=== PATIENT | male | born 1975 | race Caucasian/White ===

== ENCOUNTER 2024-11-02 07:15 | Emergency (ER) | payer OTHER, SELFPAY ==
[2024-11-02 07:20] VITALS: BP 167/107
[2024-11-02 10:00] VITALS: BP 178/92
[2024-11-02 10:13] VITALS: BMI 25.6
--- NOTE | 2024-11-02 10:28 | ED.GENMED ---
History of Present Illness
General
Chief Complaint: DVT/Possible Blood Clot
Source: patient
Time Seen by Provider: 11/02/24 08:32
History of Present Illness
History of Present Illness:
49-year-old male with past medical history of hypertension presenting to the ER for evaluation of left lower extremity discomfort specifically within the gastric anemias region over the last 1 to 2 days, mother with history of DVT prompting
patient's concern to come to the ER. He denies any trauma, focal weakness or numbness, chest pain or shortness of breath. No history of similar. Denies any cigarettes or tobacco use, no long plane rides or recent travel. No fevers or infectious
symptoms. No other concerns presently.
Past History
Past History
ED Past Medical History: HTN
ED Past Surgical History: None
Social History
Tobacco: Non-smoker
Alcohol: Occasional
Drug: None
Personal: Single
Employment: Employed
Review of Systems
Review of Systems
All Other Systems: ROS reviewed and negative except as documented in HPI and ROS
Phy Exam
Physical Exam
Physical Exam:
GENERAL: Alert , in no apparent distress
EYE: conjunctiva clear
Head: Normocephalic atraumatic
NECK: Supple,
ENT: mmm.
LUNGS: no acute respiratory distress
NEUROLOGICAL: Alert and oriented
SKIN: Warm and dry, skin intact.
MUSCULOSKELETAL: Left lower extremity: No obvious deformity, erythema, edema, ecchymosis, abrasions or lacerations. There are multiple varicose veins that are somewhat firm to palpation and tender but no overlying erythema. Easily palpable pedal
and tibial pulse cap refill less than 2 seconds and sensation is grossly intact to light touch. Patient allows for full range of motion without pain.
PSYCH: Normal and appropriate interaction.
Scores
Heart Failure Risk
Heart Failure Risk Score: Not Applicable
Heart Score for Chest Pain Patients
STEMI patient?: Not applicable
Withdrawal Assessment of Alcohol
Withdrawal Assessment Completed?: Not applicable
Course
Orders/Labs/Results
Orders:
Orders
11/02/24 08:34
US Periph Venous LOWER Ext LT Urgent
Comment:
Reason For Exam: pain, family hx DVT
Vital Signs
Initial and Last Documented VS:
Initial Vital Signs
Temp Pulse Resp BP Pulse Ox
97.6 F 85 16 167/107 97
11/02/24 07:20 11/02/24 07:20 11/02/24 07:20 11/02/24 07:20 11/02/24 07:20
Last Documented Vital Signs
Temp Pulse Resp BP Pulse Ox
98 F 75 16 178/92 97
11/02/24 10:00 11/02/24 10:00 11/02/24 10:00 11/02/24 10:00 11/02/24 10:29
MDM/Problems Addressed
Differential Diagnosis Includes:
- Varicose veins
- Phlebitis
- DVT
- Peripheral vascular disease
- Peripheral arterial disease
- No trauma to be suggestive of fracture
MDM/Problems Addressed:
49-year-old male presenting the ER for evaluation of left lower extremity pain with concern for possible DVT given mother's personal history. Patient with no other risk factors. Varicose veins noted. Will obtain ultrasound to rule out DVT.
Disposition pending
*Radiology
Radiology exam reviewed: radiology read reviewed
*Pulse Oximetry
SaO2: 97
Oxygen Mode of Delivery: Room air
Patient hypoxic: no
*Critical Care Note
Total Time (30-74mins, 75-104mins- exclusive of procedures): Not Applicable
Patient Management
Discussion with other providers: Brokerage Coordinator
Escalation/DeEscalation of care consider admission/obs:
Patient's ultrasound shows no evidence for DVT however there are multiple varicose veins with occlusive thrombus. Given the numerous varicose veins with thrombus I discussed the case with vascular surgery who states okay to treat with NSAIDs and
warm compresses however they do recommend repeat ultrasound in 1 to 2 weeks. I discussed this with the patient and advise he follow-up with primary care provider to obtain the ultrasound, if unable to get the ultrasound on an outpatient basis may
return to the ER for us to perform this test. Patient expressed understanding. Disposition pending.
ED Attending Note
-
Portions of this chart may have been created with voice recognition software.� Occasional wrong word or��sound alike� substitutions may have occurred due to the inherent limitations of voice recognition software.
Discharge Plan
Departure
Patient Disposition: Home (Routine Discharge)
Date of Disposition: 11/02/24
Time of Disposition: 10:34
Patient with high blood pressure during this ER visit?: Yes
Discharge Problem:
Varicose veins of left lower extremity, Phlebitis
Instructions: Superficial vein phlebitis and thrombosis
Referrals:
Alyssa Bernstein MD [Family Provider, [facility]]
Activity Restrictions/Additional Instructions:
You will need a repeat ultrasound in 1 to 2 weeks. Please contact your primary care provider to obtain this ultrasound however if you are not able to do so you may return to the emergency department for this to be done.
Interventions
Interventions:
*Risk Screen - Suicide Last Done: 11/02/24 07:22
*General Assessment Last Done: 11/02/24 10:13
*Neglect/Abuse Screening Last Done: 11/02/24 07:22
*ED- Fall Risk Assessment Last Done: 11/02/24 10:13
*ED COVID-19 Vaccine History Last Done: 11/02/24 10:13
*Nursing Disposition Last Done: 11/02/24 10:55
ED- Cardiac Assessment Last Done: 11/02/24 10:13
ED- Pulmonary Assessment Last Done: 11/02/24 10:13
ED-Peripheral Vascular Assessment Last Done: 11/02/24 10:13
ED-Skin Assessment Last Done: 11/02/24 10:13
Discharge Date and Time
Discharge Date/Time: 11/02/24 10:57
Print Language: CZECH
== END 2024-11-02 10:57 | disposition home or self-care (01) ==
LOC: EMR 07:15
PROVIDERS: EMERGENCY PHYSICIAN Student in an Organized Health Care Education/Training Program; FAMILY PHYSICIAN Student in an Organized Health Care Education/Training Program
DX: I83.812 Varicose veins of left lower extremity with pain (principal); I80.02 Phlebitis and thrombophlebitis of superficial vessels of left lower extremity; I10 Essential (primary) hypertension
CPT/HCPCS: 99284; 93971